=== PATIENT | male | born 1960 | race Caucasian/White ===

== ENCOUNTER → 2022-01-30 10:18 | Outpatient (BNVA) | payer OTHER, SELFPAY | PROVIDERS: Family Provider Nurse Practitioner Family; Visit Provider Emergency Medicine | DX: S69.92XA Unspecified injury of left wrist, hand and finger(s), initial encounter (principal); W01.198A Fall on same level from slipping, tripping and stumbling with subsequent striking against other object, initial encounter; Y93.K9 Activity, other involving animal care | CPT/HCPCS: 73110 ==